=== PATIENT | male | born 1930 | race Caucasian/White ===

== ENCOUNTER 2018-02-17 23:09 | Emergency (ER) | payer OTHER ==
[~2018-02-17] VITALS: Ht 175.3 cm; Wt 68.0 kg
[~2018-02-17 23:09] MED LIST: COREG OR; COUMADIN 4 MG TA4 M1; FISH OIL 1,0001 EAC5 PO; HYDROCHLOROTH12.5 MG; LISINOPRIL10 MG; MINIPRIN81 MG PO; NIACIN 500 MG500 M1 PO; NORVASC 2.5 MG2.5 M1; PRINZIDE 20-121 EACH PO; WELCHOL 625 MG625 MG; WELCHOL 625 MG625 MG PO; ZYRTEC10 M2 PO
[2018-02-17] MEDS ORDERED: LISINOPRIL5 MG PO (23:19)
[2018-02-17] MEDS ORDERED: COUMADIN 5 MG TA5 M1 PO (23:19)
[2018-02-18 00:10] LABS: INR 3.2; PROTIME 32.1 Seconds (9.3-11.4)
[2018-02-18 00:41] VITALS: BP 161/56
== END 2018-02-18 00:42 | disposition home or self-care (01) ==
LOC: ER 23:09
PROVIDERS: Emergency Medicine
DX: H11.32 Conjunctival hemorrhage, left eye (principal); E78.5 Hyperlipidemia, unspecified; I48.92 Unspecified atrial flutter; I12.9 Hypertensive chronic kidney disease with stage 1 through stage 4 chronic kidney disease, or unspecified chronic kidney disease; N18.4 Chronic kidney disease, stage 4 (severe); K21.9 Gastro-esophageal reflux disease without esophagitis; E78.00 Pure hypercholesterolemia, unspecified; Z90.89 Acquired absence of other organs; Z98.890 Other specified postprocedural states; Z88.8 Allergy status to other drugs, medicaments and biological substances